=== PATIENT | female | born 1960 | race Caucasian/White ===

== ENCOUNTER 2016-11-14 09:20 | Emergency (ER) | payer OTHER ==
[~2016-11-14] VITALS: Ht 166.4 cm; Wt 104.5 kg
[2016-11-14] MEDS ORDERED: CETI10TA (09:31)
[2016-11-14] MEDS ORDERED: FEROCAP3 (09:31)
[2016-11-14] MEDS ORDERED: MONT10TA2 (09:31)
[2016-11-14] MEDS ORDERED: MORPHINE 10 MG/ML 1ML VIAL IM ONE (09:45)
--- NOTE | 2016-11-14 10:56 | REP ---
RIGHT SHOULDER SERIES: Three views of the right shoulder are performed. There is no acute fracture or dislocation. There is moderate narrowing and mild spurring at the acromioclavicular joint. Signed by Corby Castro MD 11/14/2016 07:50 P
--- NOTE | 2016-11-14 10:58 | REP ---
RIGHT RIB SERIES: Four views of the right ribs are performed. No fracture or bone lesion is seen. An accompanying view of the chest demonstrates no acute infiltrate, pleural effusion or pneumothorax. Heart is normal in size and mediastinal silhouette is unremarkable. IMPRESSION: No evidence of right rib fracture. Signed by Corby Castro MD 11/14/2016 07:50 P
[2016-11-14] MEDS ORDERED: IBUP-1022 PO (11:02)
[2016-11-14 11:23] VITALS: BP 117/68
== END 2016-11-14 11:26 | disposition home or self-care (01) ==
LOC: M ED 09:20
DX: S40.011A Contusion of right shoulder, initial encounter (principal); S20.211A Contusion of right front wall of thorax, initial encounter; W01.198A Fall on same level from slipping, tripping and stumbling with subsequent striking against other object, initial encounter; Y92.019 Unspecified place in single-family (private) house as the place of occurrence of the external cause; Y93.89 Activity, other specified; Y99.8 Other external cause status

== ENCOUNTER → 2017-04-16 | Outpatient (REF) | payer OTHER | LOC: M SFHCLERA 16:47 | DX: J02.9 Acute pharyngitis, unspecified (principal) ==

== ENCOUNTER → 2018-04-13 | Outpatient (CLI) | payer OTHER ==
[~2018-04-13] MED LIST: CETI10TA; FEROCAP3; IBUP-1022 PO; MONT10TA2
[2018-04-13 19:38] LABS: THYROID STIMULATING HORMONE 2.52 uIU/ML (0.358-3.740); THYROXINE (T4) 10.7 UG/DL (4.5-12.0)
[2018-04-13 19:40] LABS: TOTAL T3 116.3 NG/DL (60.0-181.0)
== END ==
LOC: M WUC 17:21
DX: Z13.29 Encounter for screening for other suspected endocrine disorder (principal)

== ENCOUNTER → 2019-06-08 | Outpatient (CLI) | payer OTHER ==
[~2019-06-08] MED LIST changes: -MONT10TA2; +MONT10TA4
[2019-06-08 15:37] LABS: HEMATOCRIT 41.3 % (36.0-47.0); HEMOGLOBIN 13.4 g/dl (12.0-15.5); MEAN CORPUSCULAR HEMOGLOBIN 30.5 pg (27.0-33.0); MEAN CORPUSCULAR HGB CONC 32.4 g/dl (32.0-36.5); MEAN CORPUSCULAR VOLUME 93.9 fl (80.0-96.0); PLATELET COUNT, AUTOMATED 183 10^3/uL (150-450); WHITE BLOOD COUNT 4.2 10^3/uL (4.0-10.0)
[2019-06-08 15:49] LABS: ALBUMIN 3.5 GM/DL (3.2-5.2); ALT/SGPT 30 U/L (12-78); BILIRUBIN,TOTAL 0.4 MG/DL (0.2-1.0); BLOOD UREA NITROGEN 12 MG/DL (7-18); CALCIUM LEVEL 8.8 MG/DL (8.5-10.1); CARBON DIOXIDE LEVEL 30 MEQ/L (21-32); CHLORIDE LEVEL 106 MEQ/L (98-107); CREATININE FOR GFR 0.58 MG/DL (0.55-1.30); FERRITIN 31 NG/ML (8-252); GLOMERULAR FILTRATION RATE > 60.0 (>51); GLUCOSE, FASTING 78 MG/DL (70-100); IRON (FE) 98 UG/DL (50-170); POTASSIUM SERUM 4.3 MEQ/L (3.5-5.1); SODIUM LEVEL 140 MEQ/L (136-145); TOTAL PROTEIN 7.1 GM/DL (6.4-8.2)
[2019-06-08 15:51] LABS: TOTAL 25(OH) VITAMIN D 35.6 NG/ML (30.0-100.0)
[2019-06-08 15:52] LABS: FOLATE 15.7 NG/ML (>5.4); PTH INTACT 74.2 PG/ML (18.5-88.0); VITAMIN B12 LEVEL 543 PG/ML (247-911)
== END ==
LOC: M WUC 14:33
PROVIDERS: ATTEND Physician Assistant Surgical
DX: K90.9 Intestinal malabsorption, unspecified (principal)

== ENCOUNTER 2019-10-12 09:31 | Emergency (ER) | payer OTHER ==
[~2019-10-12] VITALS: Ht 165.1 cm; Wt 101.2 kg
[~2019-10-12 09:31] MED LIST changes: -CETI10TA; +CETI10TA PO
[2019-10-12] MEDS ORDERED: IBUP80TA PO (09:47)
[2019-10-12] MEDS ORDERED: VITA50TA47 PO (09:47)
[2019-10-12] MEDS ORDERED: CALC1TAB63 PO (09:47)
[2019-10-12] MEDS ORDERED: ACET-683 PO (09:47)
[2019-10-12] MEDS ORDERED: IRON65TA2 PO (09:47)
[2019-10-12] MEDS ORDERED: CALC250T PO (09:47)
[2019-10-12] MEDS ORDERED: AMOX875T2 PO (09:47)
[2019-10-12] MEDS ORDERED: B-12100021 PO (09:47)
[2019-10-12] MEDS ORDERED: MULTCAP PO (09:47)
[2019-10-12] MEDS ORDERED: NS 1,000 ML IV ONE (10:15)
[2019-10-12] MEDS ORDERED: KETOROLAC 30 MG/ML 1ML VIAL IV ONE ×2 (10:15→16:30)
[2019-10-12 10:49] LABS: BASO % 0.5 % (0.0-1.0); EOS # 0.2 10^3/uL (0.0-0.5); EOS % 3.8 % (0.0-3.0); HEMATOCRIT 40.5 % (36.0-47.0); HEMOGLOBIN 13.6 g/dl (12.0-15.5); LYMPH # 1.2 10^3/uL (1.5-5.0); LYMPH % 27.1 % (24.0-44.0); MEAN CORPUSCULAR HEMOGLOBIN 31.6 pg (27.0-33.0); MEAN CORPUSCULAR HGB CONC 33.6 g/dl (32.0-36.5); MEAN CORPUSCULAR VOLUME 94.2 fl (80.0-96.0); MONO # 0.3 10^3/uL (0.0-0.8); MONO % 7.2 % (0.0-5.0); NEUTROPHILS # 2.7 10^3/uL (1.5-8.5); NEUTROPHILS % 61.2 % (36.0-66.0); PLATELET COUNT, AUTOMATED 198 10^3/uL (150-450); WHITE BLOOD COUNT 4.4 10^3/uL (4.0-10.0)
[2019-10-12] MEDS ORDERED: ISOVUE-370 76% 100ML VIAL As Ordered ONE (11:27)
[2019-10-12 12:03] LABS: ERYTHROCYTE SEDIMENTATION RATE 64 mm/hr (0-30)
--- NOTE | 2019-10-12 12:19 | REPVR ---
PROCEDURE INFORMATION: Exam: CT Neck With Contrast Exam date and time: 10/12/2019 11:43 AM Age: 58 years old Clinical indication: Throat pain; Additional info: Large tender area to left neck TECHNIQUE: Imaging protocol: Computed tomography images of the neck with intravenous contrast. Radiation optimization: All CT scans at this facility use at least one of these dose optimization techniques: automated exposure control; mA and/or kV adjustment per patient size (includes targeted exams where dose is matched to clinical indication); or iterative reconstruction. Contrast material: ISO 370; Contrast volume: 75 ml; Contrast route: INTRAVENOUS (IV); COMPARISON: No relevant prior studies available. FINDINGS: Sinuses: There is polypoid mucosal thickening along the floor of the right maxillary sinus. Nasopharynx: Unremarkable. Dental: Abnormal periapical lucencies involve the left proximal and middle mandibular molars, compatible with severe periodontal disease. Oropharynx: Unremarkable. No significant tonsillar enlargement. Hypopharynx: Unremarkable. Larynx: Unremarkable. Normal epiglottis. Retropharyngeal space: Unremarkable. Submandibular/Parotid glands: Normal. Glands are normal in size. Thyroid: The thyroid gland is diffusely enlarged and heterogeneous, with punctate hypodense and calcific nodules. Lymph nodes: Unremarkable. No lymphadenopathy. Trachea: Visualized trachea is unremarkable. Lungs: Unremarkable as visualized. Bones/joints: Unremarkable. No acute fracture. Soft tissues: There is left pre mandibular soft tissue swelling and induration. There is a small 3 x 4 mm fluid collection abutting the anterior mandible. IMPRESSION: Left pre mandibular cellulitis with tiny abscess. Findings are likely odontogenic and related to abscessed left 1st and 2nd mandibular molars. Correlation with dental evaluation is recommended. COMMENTS: Consistent with the [employer]'s Incidental Findings Committee white paper (J Am Monique Radiol 2015): In patients aged 35 years and older with an incidental thyroid nodule equal to or greater than 1.[address], MRI or extrathyroidal US, further evaluation with dedicated thyroid US is recommended for patients with normal life expectancy and without comorbidities. For smaller nodules without suspicious features, no further evaluation or follow up is recommended. Electronically signed by: Marie Kim On 10/12/2019 12:19:56 PM
[2019-10-12] MEDS ORDERED: dexameTHASONE 20MG/5ML VIAL (J1100 PER 1MG) IV ONE ×2 (13:00→19:14)
[2019-10-12] MEDS ORDERED: ONDANSETRON 4MG/2ML VIAL IV ONE ×2 (13:00→19:14)
[2019-10-12] MEDS ORDERED: AMPICILLIN SOD/SULBACTAM SOD 3 GM in D5W MINI-BAG PLUS 100 ML IV ONE ×2 (13:00→19:14)
[2019-10-12 18:48] VITALS: BP 130/76
[2019-10-13] MEDS ORDERED: MULT-90 PO (13:44)
[2019-10-13] MEDS ORDERED: THIA100T7 PO (13:44)
[2019-10-13] MEDS ORDERED: CALCTAB64 PO (13:44)
[2019-10-13] MEDS ORDERED: KETOROLAC 60MG 2ML VIAL As Ordered ONE (17:53)
== END 2019-10-12 20:27 | disposition home or self-care (01) ==
LOC: M ED 09:31
DX: K04.7 Periapical abscess without sinus (principal); L03.211 Cellulitis of face; Z98.84 Bariatric surgery status; Z88.2 Allergy status to sulfonamides; Z88.1 Allergy status to other antibiotic agents; Z88.5 Allergy status to narcotic agent; Z79.899 Other long term (current) drug therapy; Z79.2 Long term (current) use of antibiotics
CPT/HCPCS: 70491; 80047; 85025; 85652; 86140; 96361; 96365; 96366; 96375; 96376; 99283; J1100; J1885; J2405; Q9967

== ENCOUNTER 2019-10-13 11:36 | Inpatient (IN) | payer OTHER ==
[~2019-10-13] VITALS: Ht 165.1 cm; Wt 101.6 kg
[~2019-10-13 11:36] MED LIST changes: +ACET-683 PO; +AMOX875T2 PO; +B-12100021 PO; +CALC1TAB63 PO; +CALC250T PO; +IBUP80TA PO; +IRON65TA2 PO; +MULTCAP PO; +VITA50TA47 PO
[2019-10-13] MEDS ORDERED: NS 1,000 ML IV SCH (11:45)
[2019-10-13 12:39] LABS: BASO % 0.1 % (0.0-1.0); HEMATOCRIT 38.8 % (36.0-47.0); LYMPH # 0.9 10^3/uL (1.5-5.0); MEAN CORPUSCULAR HGB CONC 33.5 g/dl (32.0-36.5); MEAN CORPUSCULAR VOLUME 92.4 fl (80.0-96.0); MONO # 0.6 10^3/uL (0.0-0.8); MONO % 5.6 % (0.0-5.0); NEUTROPHILS # 8.3 10^3/uL (1.5-8.5); NEUTROPHILS % 84.8 % (36.0-66.0); PLATELET COUNT, AUTOMATED 206 10^3/uL (150-450); WHITE BLOOD COUNT 9.7 10^3/uL (4.0-10.0)
[2019-10-13] MEDS ORDERED: AMPICILLIN SOD/SULBACTAM SOD 3 GM in D5W MINI-BAG PLUS 100 ML IV ONE (13:00)
[2019-10-13] MEDS ORDERED: ONDANSETRON 4MG/2ML VIAL IV ONE (13:00)
[2019-10-13 13:04] LABS: BLOOD UREA NITROGEN 18 MG/DL (7-18); C REACTIVE PROTEIN QUANTITATIV 1.95 MG/DL (0.00-0.30); CALCIUM LEVEL 8.9 MG/DL (8.5-10.1); CARBON DIOXIDE LEVEL 26 MEQ/L (21-32); CHLORIDE LEVEL 111 MEQ/L (98-107); CREATININE FOR GFR 0.54 MG/DL (0.55-1.30); GLOMERULAR FILTRATION RATE > 60.0 (>51); GLUCOSE, FASTING 101 MG/DL (70-100); POTASSIUM SERUM 4.6 MEQ/L (3.5-5.1); SODIUM LEVEL 143 MEQ/L (136-145)
[2019-10-13 13:06] LABS: ERYTHROCYTE SEDIMENTATION RATE 56 mm/hr (0-30)
[2019-10-13] MEDS ORDERED: MULT-90 PO (13:44)
[2019-10-13] MEDS ORDERED: THIA100T7 PO (13:44)
[2019-10-13] MEDS ORDERED: CALCTAB64 PO (13:44)
[2019-10-13] MEDS ORDERED: LIDOCAINE 2% W/ EPINEPHRINE 1.7 ML DENTAL INJ As Ordered ONE (16:34)
[2019-10-13] MEDS ORDERED: CHLORHEXIDINE GLUCONATE 0.12 % 15ML UDC (PERIDEX ORAL RINSE) As Ordered ONE (16:34)
[2019-10-13] MEDS ORDERED: MEPIVACAINE HCL 3 % 1.7 ML DENTAL CARTRIDGE (CARBOCAINE) (J0670) As Ordered ONE (16:34)
[2019-10-13] MEDS ORDERED: propofoL 200 MG/20 ML VIAL As Ordered ONE (16:42)
[2019-10-13] MEDS ORDERED: ONDANSETRON 4MG/2ML VIAL As Ordered ONE (16:42)
[2019-10-13] MEDS ORDERED: dexameTHASONE 4 MG/ML 1ML VIAL (J1100 PER 1MG) As Ordered ONE (16:42)
[2019-10-13] MEDS ORDERED: ROCURONIUM BROMIDE 50 MG/5 ML VIAL As Ordered ONE (16:42)
[2019-10-13] MEDS ORDERED: MIDAZOLAM INJ 2MG/2ML VIAL (J2250 PER 1MG) As Ordered ONE (16:42)
[2019-10-13] MEDS ORDERED: LIDOCAINE 2% 100MG/5ML SDV (FOR ANES.) As Ordered ONE (16:42)
[2019-10-13] MEDS ORDERED: fentaNYL 100 MCG/2 ML INJECTION (J3010) As Ordered ONE ×3 (16:42→18:51)
--- NOTE | 2019-10-13 16:43 | HPEPDOC ---
General Date of Admission 10/13/19 Date of Service: Oct 13, 2019 Chief Complaint The patient is a 58-year-old female admitted with a reason for visit of Facial Swelling. Source: Patient History of Present Illness 58 year old female with h/o morbid obesity s/p gastric bypass, CHAR was on BIPAP before bypass surgery now resolved, asthma presented initially to ED with left jaw redness and swelling for 7 days on 10/12/19. She was found to have dental abscess was given unasyn 2 doses and sent to DR Lee oral surgeon for evaluation today. Dr Lee felt that it was not related to tooth and most probably ENT related so sent her back to ED today. She was evaluated byt ENT in ED and as per them it is related to dental abscess. She had a neck CT which showed Left pre mandibular cellulitis with tiny abscess. Findings are likely odontogenic and related to abscessed left 1st and 2nd mandibular molars. Dr Lee was reconsulted and recommended admission under the hospitalist service and plans for taking to OR today. Patient complained of hard swelling, and redness under the left jaw and up to the cheek and towards the Left ear. It was tender to touch sharp aching about 3/10. She denied any swallowing problem or any pain in her tooth or any problem while chewing. She was taking Augmentin for the past week till yesterday and then got unasyn x 2 in the ED yesterday. SHe reports after the IV antibiotics the swelling has improved a lot. Home Medications Scheduled Amoxicillin/Potassium Clav (Augmentin 875-125 Tablet) 1 Each Tablet, 875 MG PO BID Calcium Citrate/Vitamin D3 (Calcium Citrate-Vit D3 Tablet) 1 Each Tablet, 1 TAB PO BID, (Reported) Cetirizine HCl (Cetirizine HCl) 10 Mg Tab, 10 MG PO QHS, (Reported) Cyanocobalamin (Vitamin B-12) (B-12) 1,000 Mcg Tablet, 1,000 TAB PO DAILY, (Reported) Ferrous Sulfate (Iron) 325 Mg Tablet, 325 MG PO DAILY, (Reported) Multivitamin (Multivitamin) 1 Each Tablet, 1 EACH PO DAILY, (Reported) Thiamine HCl (Thiamine HCl) 100 Mg Tablet, 100 MG PO DAILY, (Reported) Scheduled PRN Acetaminophen (Acetaminophen) 500 Mg Tablet, 1,000 MG PO Q6H PRN for PAIN, (Reported) Ibuprofen (Ibuprofen) 800 Mg Tablet, 800 MG PO Q8H PRN for PAIN, (Reported) Allergies Coded Allergies: Sulfa (Sulfonamide Antibiotics) (Verified Adverse Reaction, Mild, "I throw up", 10/13/19) cephalexin (Verified Adverse Reaction, Mild, vomiting, 10/13/19) codeine (Verified Adverse Reaction, Mild, "I can't stay awake", 10/13/19) sulfamethoxazole (Verified Adverse Reaction, Mild, "bad dreams", 10/13/19) trimethoprim (Verified Adverse Reaction, Mild, "bad dreams", 10/13/19) Past Medical History Medical History ASTHMA GASTRIC BYPASS IN 2012, LOST 250# Obesity ALLERGIES CHAR BEFORE BARIATRIC SURGERY Surgical History APPENDECTOMY 2002 SINUS SURGERY CYSTS 2004 CARPAL TUNNEL RELEASE BILATERAL 2005 UTERINE CYST REMOVAL 2009 GASTRIC BYPASS 2012 Family History FATHER: ALIVE 82 YRS, HTN, COPD, NOT PRODUCING RBCS, COLON CANCER MOTHER: 61 YRS, LUNG CANCER, HTN 16 YEAR OLD SON PASSED, GUN ACCIDENT. A-FIB/CHADSVASC A-FIB History Current/History of A-Fib/PAF?: No Review of Systems Constitutional: Denies: Chills, Fever, Night Sweats Eyes: Denies: Pain, Vision change ENT: Denies: Head Aches, Ear Pain, Dysphagia Skin: Denies: Rash, Lesions, Breakdown Pulmonary: Denies: Dyspnea, Cough Cardiovascular: Denies: Chest Pain, Palpitations, Orthopnea, Paroxysmal Noc. D yspnea, Lt Headedness Gastrointestinal: Denies: Nausea, Vomiting, Abdominal Pain, Diarrhea Genitourinary: Denies: Dysuria, Frequency, Incontinence, Retention Musculoskeletal: Reports: Neck Pain Physical Examination General Exam: Positive: Alert, Cooperative, No Acute Distress Eye Exam: Positive: PERRLA, Conjunctiva & lids normal, EOMI; Negative: Sclera icteric ENT Exam: Positive: Atraumatic, Mucous membr. moist/pink, Pharynx Normal, Tongue Midline, Other ENT (left submandibular hard swelling) Neck Exam: Positive: Supple, Lymphadenopathy; Negative: JVD, thyromegaly Chest Exam: Positive: Clear to auscultation, Normal air movement Heart Exam: Positive: Rate Normal, Regular Rhythm, Normal S1, Normal S2; Negative: Murmurs, Rubs Abdomen Exam: Positive: Normal bowel sounds, Soft; Negative: Tenderness, Hepatospenomegaly Extremity Exam: Positive: Normal pulses; Negative: Clubbing, Cyanosis, Edema Skin Exam: Positive: Nl turgor and temperature; Negative: Breakdown, Lesion Neuro Exam: Positive: Normal Gait, Normal Speech, Cranial Nerves 3-12 NL, Reflexes 2+ Vital Signs Vital Signs Date Time Temp Pulse Resp B/P (MAP) Pulse Ox O2 Delivery O2 Flow Rate FiO2 10/13/19 12:09 10/13/19 11:36 98.7 58 20 98 Room Air Laboratory Data Labs 24H Laboratory Tests 2 10/13/19 12:19: Immature Granulocyte % (Auto) 0.5, Neutrophils (%) (Auto) 84.8H, Lymphocytes (%) (Auto) 9.0L, Monocytes (%) (Auto) 5.6H, Eosinophils (%) (Auto) 0.0, Basophils (%) (Auto) 0.1, Neutrophils # (Auto) 8.3, Lymphocytes # (Auto) 0.9L, Monocytes # (Auto) 0.6, Eosinophils # (Auto) 0.0, Basophils # (Auto) 0.0, Nucleated Red Blood Cells % (auto) 0.0, Erythrocyte Sedimentation Rate 56H, Anion Gap 6L, Glomerular Filtration Rate > 60.0, Calcium Level 8.9, C-Reactive Protein, Quantitative 1.95H, Coronavirus (COVID-19)(PCR) NEGATIVE CBC/BMP Laboratory Tests 10/13/19 12:19 Assessment/Plan 58 year old female with h/o morbid obesity s/p gastric bypass, CHAR was on BIPAP before bypass surgery now resolved, asthma presented initially to ED with left jaw redness and swelling for 7 days on 10/12/19. She was found to have dental abscess was given unasyn 2 doses and sent to DR Lee oral surgeon for evaluation today. Dr Lee felt that it was not related to tooth and most probably ENT related so sent her back to ED today. She was evaluated byt ENT in ED and as per them it is related to dental abscess. She had a neck CT which showed Left pre mandibular cellulitis with tiny abscess. Findings are likely odontogenic and related to abscessed left 1st and 2nd mandibular molars. Dr Lee was reconsulted and recommended admission under the hospitalist service and plans for taking to OR. Dental abscess with cellulitis of the neck and face. OR today with Dr Jesus west to continue. H/o morbid obesity/ CHAR/Asthma now resolved after gastric bypass surgery and loss of over 200 lbs. Plan / VTE VTE Prophylaxis Ordered?: Yes ANTONETTE BOWERS MD Oct 13, 2019 15:57
[2019-10-13] MEDS ORDERED: SUGAMMADEX SODIUM 500 MG/5 ML VIAL (BRIDION) As Ordered ONE (18:09)
[2019-10-13] MEDS: fentaNYL 100 MCG/2 ML INJECTION (J3010) IV PRN ×4 (18:55→19:10)
[2019-10-13] MEDS ORDERED: AMPICILLIN SOD/SULBACTAM SOD 3 GM in D5W MINI-BAG PLUS 100 ML IV SCH (19:00)
[2019-10-13] MEDS ORDERED: ACETAMINOPHEN 1000MG 100ML IV BTL (OFIRMEV) (J0131 PER 10MG) As Ordered ONE (19:09)
[2019-10-13] MEDS ORDERED: ONDANSETRON 4MG/2ML VIAL IV PRN ×2 (19:15→20:45)
[2019-10-13] MEDS ORDERED: METOCLOPRAMIDE INJ 10MG/2ML VIAL (J2765 PER 1) IV PRN (19:15)
[2019-10-13] MEDS ORDERED: oxyCODONE 5MG TAB PO PRN (19:15)
[2019-10-13] MEDS ORDERED: MEPERIDINE INJ 25 MG/ML VIAL (J2175) IV PRN (19:15)
[2019-10-13] MEDS ORDERED: LR 1,000 ML IV SCH ×2 (19:15→21:30)
[2019-10-13] MEDS ORDERED: oxyCODONE 5MG TAB As Ordered ONE (19:33)
[2019-10-13] MEDS ORDERED: DILUENT IV SCH (20:00)
[2019-10-13] MEDS ORDERED: ACETAMINOPHEN IV SCH (20:00)
[2019-10-13] MEDS ORDERED: ACETAMINOPHEN *IV* 1,000 MG in APPROPRIATE DILUENT 0 ML IV SCH (20:00)
[2019-10-13 20:25] VITALS: BP 133/63
[2019-10-13 20:55] VITALS: BP 100/54
[2019-10-13] MEDS: AMPICILLIN SOD/SULBACTAM SOD 3 GM in D5W MINI-BAG PLUS 100 ML IV SCH (20:56)
[2019-10-13] MEDS ORDERED: CETIRIZINE (ZyrTEC) 10 MG TAB PO SCH (21:00)
[2019-10-13 21:25] VITALS: BP 108/51
[2019-10-13 22:25] VITALS: BP 125/60
[2019-10-13 23:25] VITALS: BP 113/62
[2019-10-14] VITALS (7 sets, daily range): BP systolic 112–129; BP diastolic 56–64
[2019-10-14] MEDS: KETOROLAC 30 MG/ML 1ML VIAL IV PRN ×2 (01:45→07:49)
[2019-10-14] MEDS: AMPICILLIN SOD/SULBACTAM SOD 3 GM in D5W MINI-BAG PLUS 100 ML IV SCH ×4 (03:20→21:42)
[2019-10-14] MEDS: THIAMINE 100 MG TAB PO SCH (08:37)
[2019-10-14] MEDS: FERROUS SULFATE 325MG TAB PO SCH (08:37)
[2019-10-14] MEDS: CYANOCOBALAMIN 500 MCG TAB PO SCH (08:37)
[2019-10-14] MEDS: MULTIVITAMINS/MINERALS THERAP 1 TAB PO SCH (08:38)
[2019-10-14] MEDS: PANTOPRAZOLE 40MG VIAL (C9113 PER 1) IV SCH (08:39)
[2019-10-14] MEDS: ENOXAPARIN 40MG/0.4ML SYRINGE (J1650 PER 10MG) SC SCH (08:41)
[2019-10-14 08:45] LABS: HEMOGLOBIN 11.6 g/dl (12.0-15.5); MEAN CORPUSCULAR HGB CONC 34.1 g/dl (32.0-36.5); MEAN CORPUSCULAR VOLUME 93.7 fl (80.0-96.0); PLATELET COUNT, AUTOMATED 165 10^3/uL (150-450); RED BLOOD COUNT 3.63 10^6/uL (4.00-5.40); WHITE BLOOD COUNT 7.2 10^3/uL (4.0-10.0)
[2019-10-14 08:56] LABS: BLOOD UREA NITROGEN 17 MG/DL (7-18); CALCIUM LEVEL 8.6 MG/DL (8.5-10.1); CARBON DIOXIDE LEVEL 30 MEQ/L (21-32); CHLORIDE LEVEL 109 MEQ/L (98-107); GLOMERULAR FILTRATION RATE > 60.0 (>51); GLUCOSE, FASTING 88 MG/DL (70-100); POTASSIUM SERUM 4.3 MEQ/L (3.5-5.1); SODIUM LEVEL 144 MEQ/L (136-145)
--- NOTE | 2019-10-14 10:33 | IPNPDOC ---
Text Note Date of Service The patient was seen on 10/14/19. NOTE Subjective: Feels better today, had tooth removed yesterday and had incision and drainage of abscess. Drain was removed this am. No fever or chills. No SOB or cough Physical Exam: Vitals: as below General Exam: Positive: Alert, Cooperative, No Acute Distress Eye Exam: Positive: PERRLA, Conjunctiva & lids normal, EOMI; Negative: Sclera icteric ENT Exam: Positive: Atraumatic, Mucous membr. moist/pink, Pharynx Normal, Tongue Midline, dressing under left jaw with surrounding swelling. Neck Exam: Positive: Supple, Lymphadenopathy; Negative: JVD, thyromegaly Chest Exam: Positive: Clear to auscultation, Normal air movement Heart Exam: Positive: Rate Normal, Regular Rhythm, Normal S1, Normal S2; Negative: Murmurs, Rubs Abdomen Exam: Positive: Normal bowel sounds, Soft; Negative: Tenderness, Hepatosplenomegaly Extremity Exam: Positive: Normal pulses; Negative: Clubbing, Cyanosis, Edema Skin Exam: Positive: Nl turgor and temperature; Negative: Breakdown, Lesion Neuro Exam: Positive: Normal Gait, Normal Speech, Cranial Nerves 3-12 NL, Reflexes 2+ 58 year old female with h/o morbid obesity s/p gastric bypass, CHAR was on BIPAP before bypass surgery now resolved, asthma presented initially to ED with left jaw redness and swelling for 7 days on 10/12/19. She was found to have dental abscess was given unasyn 2 doses and sent to DR Lee oral surgeon for evaluation today. Dr Lee felt that it was not related to tooth and most probably ENT related so sent her back to ED today. She was evaluated byt ENT in ED and as per them it is related to dental abscess. She had a neck CT which showed Left pre mandibular cellulitis with tiny abscess. Findings are likely odontogenic and related to abscessed left 1st and 2nd mandibular molars. Dr Tiffany leon was reconsulted and recommended admission under the hospitalist service. Dental abscess with cellulitis of the neck and face. Had incision drainage on 10/12 with removal of [address] Jesus west to continue. cultures in progress. H/o morbid obesity/ CHAR/Asthma now resolved after gastric bypass surgery and loss of over 200 lbs. VS,[place], I+O VS, [place], I+O Laboratory Tests 10/13/19 12:19 10/14/19 07:35 10/14/19 07:45 Vital Signs Date Time Temp Pulse Resp B/P (MAP) Pulse Ox O2 Delivery O2 Flow Rate FiO2 10/14/19 04:00 97.6 55 18 112/56 (74) 98 Room Air I&O- Last 24 Hours up to 6 AM 10/14/19 06:00 Intake Total 3342 ml Output Total 251 ml Balance 3091 ml ANTONETTE BOWERS MD Oct 14, 2019 10:33
[2019-10-14] MEDS: IBUPROFEN 800 MG TAB PO PRN (15:42)
[2019-10-14] MEDS ORDERED: SLF 3 ML SYR IV PRN (18:30)
[2019-10-14] MEDS: CETIRIZINE (ZyrTEC) 10 MG TAB PO SCH (21:43)
[2019-10-14] MEDS: SLF 3 ML SYR IV SCH (21:43)
[2019-10-14] MEDS ORDERED: ACETAMINOPHEN TAB 650MG DOSE (2X325MG) PO ONE (21:45)
[2019-10-15] VITALS: BP 132/71
[2019-10-15] MEDS: AMPICILLIN SOD/SULBACTAM SOD 3 GM in D5W MINI-BAG PLUS 100 ML IV SCH ×4 (03:12→21:24)
[2019-10-15 04:00] VITALS: BP 138/65
[2019-10-15] MEDS: SLF 3 ML SYR IV SCH ×3 (05:58→21:24)
[2019-10-15 08:00] VITALS: BP 146/73
[2019-10-15] MEDS: THIAMINE 100 MG TAB PO SCH (08:42)
[2019-10-15] MEDS: CYANOCOBALAMIN 500 MCG TAB PO SCH (08:42)
[2019-10-15] MEDS: MULTIVITAMINS/MINERALS THERAP 1 TAB PO SCH (08:42)
[2019-10-15] MEDS: FERROUS SULFATE 325MG TAB PO SCH (08:42)
[2019-10-15] MEDS: PANTOPRAZOLE 40MG VIAL (C9113 PER 1) IV SCH (08:43)
[2019-10-15] MEDS: IBUPROFEN 800 MG TAB PO PRN ×2 (08:45→18:35)
[2019-10-15] MEDS: ENOXAPARIN 40MG/0.4ML SYRINGE (J1650 PER 10MG) SC SCH (08:54)
--- NOTE | 2019-10-15 11:41 | IPNPDOC ---
Text Note Date of Service The patient was seen on 10/15/19. NOTE Subjective: Feels better today, eating soft food, swelling beter but still not completely resolved. Physical Exam: Vitals: as below General Exam: Positive: Alert, Cooperative, No Acute Distress Eye Exam: Positive: PERRLA, Conjunctiva & lids normal, EOMI; Negative: Sclera icteric ENT Exam: Positive: Atraumatic, Mucous membr. moist/pink, Pharynx Normal, Tongue Midline, dressing under left jaw with surrounding swelling. Neck Exam: Positive: Supple, Lymphadenopathy; Negative: JVD, thyromegaly Chest Exam: Positive: Clear to auscultation, Normal air movement Heart Exam: Positive: Rate Normal, Regular Rhythm, Normal S1, Normal S2; Negative: Murmurs, Rubs Abdomen Exam: Positive: Normal bowel sounds, Soft; Negative: Tenderness, Hepatosplenomegaly Extremity Exam: Positive: Normal pulses; Negative: Clubbing, Cyanosis, Edema Skin Exam: Positive: Nl turgor and temperature; Negative: Breakdown, Lesion Neuro Exam: Positive: Normal Gait, Normal Speech, Cranial Nerves 3-12 NL, Reflexes 2+ Labs and Radiology: reviewed A/P 58 year old female with h/o morbid obesity s/p gastric bypass, CHAR was on BIPAP before bypass surgery now resolved, asthma presented initially to ED with left jaw redness and swelling for 7 days on 10/12/19. She was found to have dental abscess was given unasyn 2 doses and sent to DR Lee oral surgeon for evaluation today. Dr Lee felt that it was not related to tooth and most probably ENT related so sent her back to ED today. She was evaluated byt ENT in ED and as per them it is related to dental abscess. She had a neck CT which showed Left pre mandibular cellulitis with tiny abscess. Findings are likely o dontogenic and related to abscessed left 1st and 2nd mandibular molars. Dr Lee was reconsulted and recommended admission under the hospitalist service. Dental abscess with cellulitis of the neck and face. Had incision drainage on 10/12 with removal of [address] Lee unaumern to continue. H/o morbid obesity/ CHAR/Asthma now resolved after gastric bypass surgery and loss of over 200 lbs. VS,Fishbone, I+O VS, Fishbone, I+O Vital Signs Date Time Temp Pulse Resp B/P (MAP) Pulse Ox O2 Delivery O2 Flow Rate FiO2 10/15/19 08:00 98.5 72 18 146/73 (97) 97 Room Air I&O- Last 24 Hours up to 6 AM 10/15/19 06:00 Intake Total 1470 ml Output Total 800 ml Balance 670 ml ANTONETTE BOWERS MD Oct 15, 2019 11:41
[2019-10-15 12:00] VITALS: BP 141/65
[2019-10-15 16:00] VITALS: BP 128/64
[2019-10-15 20:00] VITALS: BP 132/62
[2019-10-15] MEDS: CETIRIZINE (ZyrTEC) 10 MG TAB PO SCH (21:24)
[2019-10-16] VITALS (7 sets, daily range): BP systolic 108–161; BP diastolic 54–86
[2019-10-16] MEDS: AMPICILLIN SOD/SULBACTAM SOD 3 GM in D5W MINI-BAG PLUS 100 ML IV SCH ×4 (02:31→21:02)
[2019-10-16] MEDS: SLF 3 ML SYR IV SCH ×3 (05:48→21:03)
[2019-10-16] MEDS: MULTIVITAMINS/MINERALS THERAP 1 TAB PO SCH (08:33)
[2019-10-16] MEDS: THIAMINE 100 MG TAB PO SCH (08:33)
[2019-10-16] MEDS: FERROUS SULFATE 325MG TAB PO SCH (08:33)
[2019-10-16] MEDS: ENOXAPARIN 40MG/0.4ML SYRINGE (J1650 PER 10MG) SC SCH (08:34)
[2019-10-16] MEDS: CYANOCOBALAMIN 500 MCG TAB PO SCH (08:34)
[2019-10-16] MEDS: PANTOPRAZOLE 40MG VIAL (C9113 PER 1) IV SCH (08:34)
--- NOTE | 2019-10-16 10:52 | IPNPDOC ---
Text Note Date of Service The patient was seen on 10/16/19. NOTE Subjective: No complaints today. Eating soft food, swelling better but still not completely resolved. Physical Exam: Vitals: as below General Exam: Positive: Alert, Cooperative, No Acute Distress Eye Exam: Positive: PERRLA, Conjunctiva & lids normal, EOMI; Negative: Sclera icteric ENT Exam: Positive: Atraumatic, Mucous membr. moist/pink, Pharynx Normal, Tongue Midline, dressing under left jaw with surrounding swelling. Neck Exam: Positive: Supple, Lymphadenopathy; Negative: JVD, thyromegaly Chest Exam: Positive: Clear to auscultation, Normal air movement Heart Exam: Positive: Rate Normal, Regular Rhythm, Normal S1, Normal S2; Negative: Murmurs, Rubs Abdomen Exam: Positive: Normal bowel sounds, Soft; Negative: Tenderness, Hepatosplenomegaly Extremity Exam: Positive: Normal pulses; Negative: Clubbing, Cyanosis, Edema Skin Exam: Positive: Nl turgor and temperature; Negative: Breakdown, Lesion Neuro Exam: Positive: Normal Gait, Normal Speech, Cranial Nerves 3-12 NL, Reflexes 2+ Labs and radilogy : reviewed 58 year old female with h/o morbid obesity s/p gastric bypass, CHAR was on BIPAP before bypass surgery now resolved, asthma presented initially to ED with left jaw redness and swelling for 7 days on 10/12/19. She was found to have dental abscess was given unasyn 2 doses and sent to DR Lee oral surgeon for evaluation today. Dr Lee felt that it was not related to tooth and most probably ENT related so sent her back to ED today. She was evaluated byt ENT in ED and as per them it is related to dental abscess. She had a neck CT which showed Left pre mandibular cellulitis with tiny abscess. Findings are likely odontogenic and related to abscessed left 1st and 2nd mandibular molars. Dr Lee was reconsulted and recommended admission under the hospitalist service. Dental abscess with cellulitis of the neck and face. Had incision drainage on 10/12 with removal of [address] Lee unamichael to continue. H/o morbid obesity/ CHAR/Asthma now resolved after gastric bypass surgery and lo ss of over 200 lbs. VS,Fishbone, I+O VS, Fishbone, I+O Vital Signs Date Time Temp Pulse Resp B/P (MAP) Pulse Ox O2 Delivery O2 Flow Rate FiO2 10/16/19 08:00 98.5 74 18 141/68 (92) 97 Room Air I&O- Last 24 Hours up to 6 AM 10/16/19 06:00 Intake Total 1160 ml Output Total 2200 ml Balance -1040 ml ANTONETTE BOWERS MD Oct 16, 2019 10:52
[2019-10-16] MEDS: CETIRIZINE (ZyrTEC) 10 MG TAB PO SCH (21:02)
[2019-10-17] MEDS: AMPICILLIN SOD/SULBACTAM SOD 3 GM in D5W MINI-BAG PLUS 100 ML IV SCH ×2 (03:06→08:33)
[2019-10-17 03:17] VITALS: BP_SYST 113; BP_SYST 163; BP_DIAS 56; BP_DIAS 88
[2019-10-17] MEDS: SLF 3 ML SYR IV SCH (06:00)
[2019-10-17 07:24] VITALS: O2SAT 98
[2019-10-17 08:00] VITALS: BP 145/66
[2019-10-17] MEDS: FERROUS SULFATE 325MG TAB PO SCH (08:31)
[2019-10-17] MEDS: CYANOCOBALAMIN 500 MCG TAB PO SCH (08:32)
[2019-10-17] MEDS: THIAMINE 100 MG TAB PO SCH (08:32)
[2019-10-17] MEDS: MULTIVITAMINS/MINERALS THERAP 1 TAB PO SCH (08:32)
[2019-10-17] MEDS: PANTOPRAZOLE 40MG VIAL (C9113 PER 1) IV SCH (08:33)
[2019-10-17] MEDS: ENOXAPARIN 40MG/0.4ML SYRINGE (J1650 PER 10MG) SC SCH (08:33)
[2019-10-17] MEDS ORDERED: AUGM875T28 PO (11:02)
--- NOTE | 2019-10-17 22:37 | DS.PDOC ---
Discharge Summary General Date of Admission Oct 13, 2019 at 15:47 Date of Discharge 10/17/19 Discharge Summary PROCEDURES PERFORMED DURING STAY: [None]. DISCHARGE DIAGNOSES: Dental abscess Neck abscess and cellulitis SECONDARY DIAGNOSIS: ASTHMA Morbid obesity s/p GASTRIC BYPASS IN 2011, LOST 250# Obesity Allergies CHAR BEFORE BARIATRIC SURGERY COMPLICATIONS/CHIEF COMPLAINT: Dental Abscess. HOSPITAL COURSE: 58 year old female with h/o morbid obesity s/p gastric bypass, CHAR was on BIPAP before bypass surgery now resolved, asthma presented initially to ED with left jaw redness and swelling for 7 days on 10/12/19. She was found to have dental abscess was given Unasyn 2 doses [address] sent to Dr Lee oral surgeon for evaluation today. Dr Lee felt that it was not related to tooth and most probably ENT related so sent her back to ED today. She was evaluated byt ENT in ED and as per them it is related to dental abscess. She had a neck CT which showed Left pre mandibular cellulitis with tiny abscess. Findings are likely odontogenic and related to abscessed left 1st and 2nd mandibular molars. Dr Lee was reconsulted and recommended admission under the hospitalist service. Dental abscess with cellulitis of the neck and face. Had incision drainage on 10/12 with removal of [address] Jesus west in hospital and discharged with Augmentin for 10 days. H/o morbid obesity/ CHAR/Asthma now resolved after gastric bypass surgery and loss of over 200 lbs. DISCHARGE MEDICATIONS: Please see below. ALLERGIES: Please see below. PHYSICAL EXAMINATION ON DISCHARGE: VITAL SIGNS: Please see below. General Exam: Positive: Alert, Cooperative, No Acute Distress Eye Exam: Positive: PERRLA, Conjunctiva & lids normal, EOMI; Negative: Sclera icteric ENT Exam: Positive: Atraumatic, Mucous membr. moist/pink, Pharynx Normal, Tongue Midline, dressing under left jaw with surrounding swelling. Neck Exam: Positive: Supple, Lymphadenopathy; Negative: JVD, thyromegaly Chest Exam: Positive: Clear to auscultation, Normal air movement Heart Exam: Positive: Rate Normal, Regular Rhythm, Normal S1, Normal S2; Negative: Murmurs, Rubs Abdomen Exam: Positive: Normal bowel sounds, Soft; Negative: Tenderness, Hepatosplenomegaly Extremity Exam: Positive: Normal pulses; Negative: Clubbing, Cyanosis, Edema Skin Exam: Positive: Nl turgor and temperature; Negative: Breakdown, Lesion Neuro Exam: Positive: Normal Gait, Normal Speech, Cranial Nerves 3-12 NL, Reflexes 2+ LABORATORY DATA: Please see below. ACTIVITY: [As tolerated]. DIET: Mechanical soft diet DISPOSITION: 01 Home, Self-Care. DISCHARGE INSTRUCTIONS: Follow up with Dr Lee in 10 days. ITEMS TO FOLLOWUP ON ON OUTPATIENT: Follow up final cultures. DISCHARGE CONDITION: [Stable]. TIME SPENT ON DISCHARGE: 25 minutes. Vital Signs/I&Os Vital Signs Date Time Temp Pulse Resp B/P (MAP) Pulse Ox O2 Delivery O2 Flow Rate FiO2 10/17/19 08:00 99.1 52 18 145/66 (92) 98 Room Air I&O- Last 24 Hours up to 6 AM 10/17/19 07:00 Intake Total 1160 ml Output Total 2500 ml Balance -1340 ml Microbiology Microbiology 10/13/19 Gram Stain - Final, Resulted 10/13/19 Wound Culture - Final, Resulted 10/13/19 Anaerobic Culture, Resulted Pending Discharge Medications Scheduled Amoxicillin/Potassium Clav (Augmentin 875-125 Tablet) 1 Each Tablet, 875 MG PO BID Calcium Citrate/Vitamin D3 (Calcium Citrate-Vit D3 Tablet) 1 Each Tablet, 1 TAB PO BID, (Reported) Cetirizine HCl (Cetirizine HCl) 10 Mg Tab, 10 MG PO QHS, (Reported) Cyanocobalamin (Vitamin B-12) (B-12) 1,000 Mcg Tablet, 1,000 TAB PO DAILY, (Reported) Ferrous Sulfate (Iron) 325 Mg Tablet, 325 MG PO DAILY, (Reported) Multivitamin (Multivitamin) 1 Each Tablet, 1 EACH PO DAILY, (Reported) Thiamine HCl (Thiamine HCl) 100 Mg Tablet, 100 MG PO DAILY, (Reported) Scheduled PRN Acetaminophen (Acetaminophen) 500 Mg Tablet, 1,000 MG PO Q6H PRN for PAIN, (Reported) Ibuprofen (Ibuprofen) 800 Mg Tablet, 800 MG PO Q8H PRN for PAIN, (Reported) Allergies Coded Allergies: Sulfa (Sulfonamide Antibiotics) (Verified Adverse Reaction, Mild, "I throw up", 10/13/19) cephalexin (Verified Adverse Reaction, Mild, vomiting, 10/13/19) codeine (Verified Adverse Reaction, Mild, "I can't stay awake", 10/13/19) sulfamethoxazole (Verified Adverse Reaction, Mild, "bad dreams", 10/13/19) trimethoprim (Verified Adverse Reaction, Mild, "bad dreams", 10/13/19) ANTONETTE BOWERS MD Oct 17, 2019 22:37
--- NOTE | 2019-10-28 14:33 | ER ---
DATE: 10/13/2019 REASON FOR CONSULTATION: The patient presents with a history of a swelling just beneath the mandible anteriorly on the left side. HISTORY OF PRESENT ILLNESS: The patient was seen in the emergency department, placed on oral antibiotic therapy with improvement. The patient was seen by an oral surgeon. The patient had a CT scan of the face which shows that there is premandibular swelling on the left side of the midline. This is consistent with a premaxillary abscess which measures just over 1 cm in diameter. PHYSICAL EXAMINATION: The patient is alert and oriented x3, no distress. There is swelling beneath the mandible which is tender and blanches. Inside the mouth there is no tenderness in the labial gingival sulcus. There is a bad premolar on that left side of the mandible. IMPRESSION: The patient likely has an abscess related to this carious tooth. The patient requires incision and drainage which could be done under local anesthesia. At the same time the dentist wants to remove some teeth. The oral surgeon can do this at the same time as he does the dental extraction. There is no trismus. ELLIS
--- NOTE | 2019-11-25 14:20 | RO ---
DATE OF OPERATION: 10/13/2019 PREOPERATIVE DIAGNOSIS: Left neck abscess, abscessed teeth #19, 20, partly erupted and carious tooth #17. POSTOPERATIVE DIAGNOSIS: Status post the above. PROCEDURE: Extraction of the aforementioned teeth #19 and 20 as well as incision and drainage of left neck abscess with placement of Anika drain. SURGEON: Derrick Lee DMD ANESTHESIA USED: General endotracheal anesthesia via oral JESUSITA. SPECIMENS: Gram stain, cultures and sensitivity, aerobes and anaerobes. Also teeth for gross only. INDICATIONS FOR SURGERY: Radha is a pleasant 58-year-old female who over the last week has had neck swelling and pain stemming from her teeth radiating into her neck with worsening neck swelling. She went to the emergency room yesterday. She was given intravenous (IV) antibiotics and was sent to me to be seen this morning for evaluation. Upon clinical exam, she had obvious left neck swelling that is large and indurated with erythematous skin. The induration and swelling is very tender to palpation. Her maximal intersagittal opening is about 50 mL. She does have poor oral hygiene and several carious teeth, including necrotic and grossly decayed #20 as well as gross carious tooth #19, barely erupted and dehisced wisdom tooth #17 that also had mesial caries. Intraorally there is no sign of swelling; however, there is tenderness to palpation in her left vestibule. Floor of the mouth is soft and nonelevated. Her white count from yesterday was 4.4, and she has been afebrile. Her CT scan does show a fluid collection in the left neck perimandibular area in the submandibular space. I went over the risks, benefits, and alternatives with the patient. Informed consent and history and physical were obtained. Elected to have the procedure done in an operating room setting before I sent the patient from my office down to the emergency room for a full admission by the hospitalist and a trip to the operating room for the aforementioned procedure. DESCRIPTION OF PROCEDURE: The patient was taken back to the operating room. She was laid supine on the operating room table. Ulnar nerve protectors were placed. Noninvasive cardiac monitors were applied. At that point the patient underwent general anesthesia and intubated with an oral JESUSITA. She was prepped and draped in the usual sterile fashion. A time-out procedure was performed to identify the patient, the procedure, and any of the precautions. A moist throat pack was inserted in the patient's oropharynx followed by the administration of 2% lidocaine with 1:100,000 epinephrine as local infiltration and blocks as well as skin infiltration in the left neck area along the proposed incision line, which was about an inch and a half below the inferior border of the mandible. At this point, once the local was given, a full-thickness flap was raised extending from #17, 18, 19, 20, and 21 with an anterior and posterior release. A small amount of buccal bone in a tough fashion was removed to sites #19 and 20. Teeth were then luxated and delivered. Sockets were curetted and irrigated. No sign of any purulence was noted. At this point, dissection was then carried out subperiosteal all the way down to the inferior border of the mandible, and once again no purulence was noted; however, an abundant amount of granulation tissue was evacuated from the sockets #19 and 20. Copious irrigation at this point. A 15-blade was then used on the left neck proposed incision line in the skin, which was carried through skin, platysma, and subcutaneous fat. Cautery was used to achieve hemostasis. Blunt hemostats were then used to puncture through the platysma and into the submandibular space and sublingual space. An abundant amount of purulent material was evacuated, and this is the material that was collected for specimen for aerobes, anaerobes, Gram stain, and sensitivity and cultures. Once all the purulent material was evacuated, the hemostats were then used to further bluntly dissect into the submandibular and sublingual spaces, and then my own index finger was used to bluntly dissect into those spaces with an abundant amount of necrotic tissue that was evacuated. Copious irrigation into those space, and one single 1/4-inch [place] drain was placed into the left submandibular space and secured at the skin with 3-0 silks. At this point, the neck was dressed with an ABD pad and gauze. Once the flap was closed with 3-0 chromic sutures, the oral cavity was irrigated and suctioned. The throat pack was removed, and the patient was then awakened from general anesthesia and taken back to the postanesthesia care unit (PACU). COMPLICATIONS: None. ESTIMATED BLOOD LOSS: 20 mL. DRAINS: There was one drain placed, 1/4-inch Anika, left submandibular space. MTDD
== END 2019-10-17 11:38 | disposition home or self-care (01) | DRG 98 ==
LOC: M ED 11:36 → M ED INP 15:47 → ENRESERV 19:54 → M PED 20:25
PROVIDERS: ADMIT Internal Medicine Nephrology; ATTEND Internal Medicine Nephrology
PROC: 0CDXXZ1 Extraction of Lower Tooth, Multiple, External Approach (ICD-10-PCS; 2019-10-13)
PROC: 0W9500Z Drainage of Lower Jaw with Drainage Device, Open Approach (ICD-10-PCS; principal; 2019-10-13 16:30)
DX: K04.7 Periapical abscess without sinus (principal); L03.221 Cellulitis of neck; L03.211 Cellulitis of face; J45.909 Unspecified asthma, uncomplicated; Z98.84 Bariatric surgery status; K02.9 Dental caries, unspecified; E66.9 Obesity, unspecified; Z88.2 Allergy status to sulfonamides; Z88.5 Allergy status to narcotic agent; Z88.1 Allergy status to other antibiotic agents; Z88.8 Allergy status to other drugs, medicaments and biological substances; Z79.899 Other long term (current) drug therapy; Z68.37 Body mass index [BMI] 37.0-37.9, adult

== ENCOUNTER → 2020-01-03 | Outpatient (REF) | payer OTHER ==
[~2020-01-03] MED LIST changes: +AUGM875T28 PO; +CALCTAB64 PO; +MULT-90 PO; +THIA100T7 PO
== END ==
LOC: M SFHCWAGY 17:12
PROVIDERS: ATTEND Nurse Practitioner Women's Health
DX: Z12.4 Encounter for screening for malignant neoplasm of cervix (principal); Z01.419 Encounter for gynecological examination (general) (routine) without abnormal findings

== ENCOUNTER → 2020-01-05 | Outpatient (CLI) | payer OTHER ==
--- NOTE | 2020-01-05 12:01 | REPMRS ---
Patient History The patient states she has not had a clinical breast exam in over a year. Family history of colorectal cancer at age 50 or over in maternal grandmother. 3D TOMOSYNTHESIS WAS PERFORMED. The Earnest Del Valle lifetime risk for breast cancer is 10.9%. Volpara breast density b. Digital Woman Screen Mammo: January 05, 2020 - Exam #: [id number] Bilateral CC and MLO view(s) were taken. Technologist: Mary Lee, Technologist Prior study comparison: June 20, 2014, digital woman screen mammo performed at [facility] [place]. 2013, bilateral digital mammo screening bilat, performed at [facility]. FINDINGS: There are scattered fibroglandular densities. There has been no change in the appearance of the mammogram from the prior studies. There is a mild amount of residual fibroglandular tissue which is fairly symmetric. There is no interval development of dominant mass, architectural distortion, or clustered microcalcification suggestive of malignancy. Assessment: BI-RADS/ACR category 1 mammogram. Negative Mammogram. Recommendation Routine screening mammogram in 1 year (for women over age 40). This mammogram was interpreted with the aid of an FDA-approved computer-aided dectection system. Electronically Signed By: Corby Castro MD 01/05/20 1200
== END ==
LOC: M WHC 10:56
PROVIDERS: ATTEND Nurse Practitioner Women's Health
DX: Z12.31 Encounter for screening mammogram for malignant neoplasm of breast (principal)

== ENCOUNTER → 2020-07-12 | Outpatient (CLI) | payer OTHER ==
[~2020-07-12] MED LIST changes: +MONT10TA10; -MONT10TA4
[2020-07-12 07:55] LABS: HEMATOCRIT 41.3 % (36.0-47.0); HEMOGLOBIN 13.6 g/dl (12.0-15.5); MEAN CORPUSCULAR HEMOGLOBIN 30.6 pg (27.0-33.0); MEAN CORPUSCULAR HGB CONC 32.9 g/dl (32.0-36.5); PLATELET COUNT, AUTOMATED 199 10^3/uL (150-450); RED BLOOD COUNT 4.44 10^6/uL (4.00-5.40); WHITE BLOOD COUNT 4.9 10^3/uL (4.0-10.0)
[2020-07-12 08:24] LABS: ALBUMIN 3.4 GM/DL (3.2-5.2); ALT/SGPT 23 U/L (12-78); BILIRUBIN,TOTAL 0.4 MG/DL (0.2-1.0); BLOOD UREA NITROGEN 14 MG/DL (7-18); CALCIUM LEVEL 8.9 MG/DL (8.5-10.1); CARBON DIOXIDE LEVEL 29 MEQ/L (21-32); CHLORIDE LEVEL 109 MEQ/L (98-107); CREATININE FOR GFR 0.64 MG/DL (0.55-1.30); FERRITIN 17 NG/ML (8-252); GLOMERULAR FILTRATION RATE > 60.0 (>51); GLUCOSE, FASTING 95 MG/DL (70-100); IRON (FE) 60 UG/DL (50-170); POTASSIUM SERUM 4.2 MEQ/L (3.5-5.1); SODIUM LEVEL 143 MEQ/L (136-145); TOTAL PROTEIN 6.8 GM/DL (6.4-8.2)
[2020-07-12 08:52] LABS: PTH INTACT 82.8 PG/ML (18.5-88.0); TOTAL 25(OH) VITAMIN D 35.7 NG/ML (30.0-100.0); VITAMIN B12 LEVEL 517 PG/ML (247-911)
[2020-07-12 09:05] LABS: FOLATE 14.2 NG/ML (>5.4)
== END ==
LOC: M LAB 06:50
PROVIDERS: ATTEND Physician Assistant Surgical
DX: K90.9 Intestinal malabsorption, unspecified (principal)

== ENCOUNTER → 2021-03-01 | Outpatient (REF) | payer OTHER ==
[~2021-03-01] MED LIST changes: -MONT10TA10; +MONT10TA97
== END ==
LOC: M SFHCWAGY 13:12
PROVIDERS: ATTEND Nurse Practitioner Women's Health
DX: Z12.4 Encounter for screening for malignant neoplasm of cervix (principal); B97.7 Papillomavirus as the cause of diseases classified elsewhere

== ENCOUNTER → 2021-03-01 | Outpatient (CLI) | payer OTHER | LOC: M WHC 09:00 | PROVIDERS: ATTEND Nurse Practitioner Women's Health | DX: Z12.31 Encounter for screening mammogram for malignant neoplasm of breast (principal) ==

== ENCOUNTER 2021-08-26 13:09 | Emergency (ER) | payer OTHER ==
[~2021-08-26] VITALS: Ht 167.6 cm; Wt 102.3 kg
[2021-08-26 14:05] LABS: BASO % 0.4 % (0.0-1.0); EOS # 0.1 10^3/uL (0.0-0.5); EOS % 1.7 % (0.0-3.0); HEMATOCRIT 38.7 % (36.0-47.0); HEMOGLOBIN 12.7 g/dl (12.0-15.5); LYMPH # 1.2 10^3/uL (1.5-5.0); LYMPH % 15.8 % (24.0-44.0); MEAN CORPUSCULAR HEMOGLOBIN 29.9 pg (27.0-33.0); MEAN CORPUSCULAR HGB CONC 32.8 g/dl (32.0-36.5); MEAN CORPUSCULAR VOLUME 91.1 fl (80.0-96.0); MONO # 0.5 10^3/uL (0.0-0.8); MONO % 5.9 % (2.0-8.0); NEUTROPHILS # 5.7 10^3/uL (1.5-8.5); NEUTROPHILS % 75.8 % (36.0-66.0); PLATELET COUNT, AUTOMATED 203 10^3/uL (150-450); RED BLOOD COUNT 4.25 10^6/uL (4.00-5.40); WHITE BLOOD COUNT 7.6 10^3/uL (4.0-10.0)
[2021-08-26] MEDS ORDERED: NS 1,000 ML IV ONE (14:15)
[2021-08-26] MEDS ORDERED: ONDANSETRON 4MG 2ML VIAL IV ONE (14:15)
[2021-08-26 14:35] LABS: ALBUMIN 3.5 GM/DL (3.2-5.2); ALT/SGPT 25 U/L (12-78); BILIRUBIN,DIRECT < 0.1 MG/DL (0.0-0.2); BILIRUBIN,TOTAL 0.4 MG/DL (0.2-1.0); LIPASE 199 U/L (73-393); TOTAL PROTEIN 6.9 GM/DL (6.4-8.2)
[2021-08-26] MEDS ORDERED: KETOROLAC 30 MG/ML 1ML VIAL IV ONE (14:45)
[2021-08-26] MEDS ORDERED: MORPHINE 4 MG/ML 1ML VIAL/SYRINGE IV ONE (16:45)
[2021-08-26] MEDS ORDERED: traMADol 50 MG TAB (HOME DOSE PACK) PO ONE (17:45)
[2021-08-26] MEDS ORDERED: KETO10TAB PO (17:48)
[2021-08-26] MEDS ORDERED: FLOM0.4C39 PO (17:48)
[2021-08-26 18:12] VITALS: BP 145/67
[2021-08-26] MEDS ORDERED: ONDA4TAB6 PO (18:12)
== END 2021-08-26 18:15 | disposition home or self-care (01) ==
LOC: M ED 13:09
DX: N13.2 Hydronephrosis with renal and ureteral calculous obstruction (principal); I10 Essential (primary) hypertension; Z90.89 Acquired absence of other organs; Z88.2 Allergy status to sulfonamides; Z88.8 Allergy status to other drugs, medicaments and biological substances; Z88.6 Allergy status to analgesic agent; Z79.899 Other long term (current) drug therapy
CPT/HCPCS: 74176; 80047; 80076; 81001; 83690; 85025; 96361; 96374; 96375; 99284; J1885; J2270; J2405

== ENCOUNTER → 2022-05-19 | Outpatient (CLI) | payer OTHER ==
[~2022-05-19] MED LIST changes: +FLOM0.4C39 PO; +KETO10TAB PO; +ONDA4TAB6 PO
[2022-05-19 09:06] LABS: BASO % 0.7 % (0.0-1.0); EOS # 0.3 10^3/uL (0.0-0.5); EOS % 6.7 % (0.0-3.0); HEMATOCRIT 36.9 % (36.0-47.0); HEMOGLOBIN 11.8 g/dl (12.0-15.5); LYMPH # 1.5 10^3/uL (1.5-5.0); LYMPH % 32.8 % (24.0-44.0); MEAN CORPUSCULAR HEMOGLOBIN 28.3 pg (27.0-33.0); MEAN CORPUSCULAR VOLUME 88.5 fl (80.0-96.0); MONO # 0.5 10^3/uL (0.0-0.8); MONO % 11.1 % (2.0-8.0); NEUTROPHILS # 2.2 10^3/uL (1.5-8.5); NEUTROPHILS % 48.5 % (36.0-66.0); PLATELET COUNT, AUTOMATED 208 10^3/uL (150-450); RED BLOOD COUNT 4.17 10^6/uL (4.00-5.40); WHITE BLOOD COUNT 4.6 10^3/uL (4.0-10.0)
[2022-05-19 09:14] LABS: HEMOGLOBIN A1c 5.3 % (4.0-6.0)
[2022-05-19 09:33] LABS: ALBUMIN 3.3 G/DL (3.2-5.2); ALKALINE PHOSPHATASE 79 U/L (46-116); ALT/SGPT 26 U/L (7.0-40); AST/SGOT 22 U/L (<34); BILIRUBIN,TOTAL 0.5 MG/DL (0.3-1.2); BLOOD UREA NITROGEN 11 MG/DL (9-23); CALCIUM LEVEL 8.6 MG/DL (8.5-10.1); CARBON DIOXIDE LEVEL 30 MMOL/L (20-31); CHLORIDE LEVEL 108 MMOL/L (98-107); CHOLESTEROL LEVEL 200 MG/DL (<200); CHOLESTEROL RISK RATIO 2.97 (<5); CREATININE FOR GFR 0.61 MG/DL (0.55-1.30); FERRITIN 6.3 NG/ML (7.3-270.7); GLOMERULAR FILTRATION RATE > 60.0 (>51); GLUCOSE, FASTING 85 MG/DL (60-100); HDL CHOLESTEROL 67.3 MG/DL (>40); LDL CHOLESTEROL 119.3 MG/DL (<100); NON-HDL-C 132.7 MG/DL; POTASSIUM SERUM 4.3 MMOL/L (3.5-5.1); SODIUM LEVEL 141 MMOL/L (136-145); TOTAL 25(OH) VITAMIN D 29.2 NG/ML (20.0-100.0); TOTAL PROTEIN 6.5 G/DL (5.7-8.2); TRIGLYCERIDES LEVEL 67 MG/DL (<150); VITAMIN B12 LEVEL 455 PG/ML (211-911)
== END ==
LOC: M LAB 08:18
PROVIDERS: ATTEND Nurse Practitioner Family
DX: Z98.84 Bariatric surgery status (principal); Z13.220 Encounter for screening for lipoid disorders; Z13.1 Encounter for screening for diabetes mellitus; E55.9 Vitamin D deficiency, unspecified

== ENCOUNTER → 2022-10-31 | Outpatient (CLI) | payer OTHER | LOC: M WHC 13:51 | PROVIDERS: ATTEND Nurse Practitioner Family | DX: Z12.31 Encounter for screening mammogram for malignant neoplasm of breast (principal) ==

== ENCOUNTER → 2022-11-03 | Outpatient (CLI) | payer OTHER ==
[2022-11-03 11:09] LABS: BASO % 0.4 % (0.0-1.0); EOS # 0.2 10^3/uL (0.0-0.5); EOS % 3.1 % (0.0-3.0); HEMATOCRIT 37.3 % (36.0-47.0); HEMOGLOBIN 11.7 g/dl (12.0-15.5); LYMPH # 1.9 10^3/uL (1.5-5.0); LYMPH % 40.5 % (24.0-44.0); MEAN CORPUSCULAR HEMOGLOBIN 27.5 pg (27.0-33.0); MEAN CORPUSCULAR HGB CONC 31.4 g/dl (32.0-36.5); MEAN CORPUSCULAR VOLUME 87.6 fl (80.0-96.0); MONO # 0.4 10^3/uL (0.0-0.8); MONO % 8.8 % (2.0-8.0); NEUTROPHILS # 2.2 10^3/uL (1.5-8.5); PLATELET COUNT, AUTOMATED 224 10^3/uL (150-450); RED BLOOD COUNT 4.26 10^6/uL (4.00-5.40); WHITE BLOOD COUNT 4.8 10^3/uL (4.0-10.0)
[2022-11-03 11:42] LABS: ALBUMIN 3.3 G/DL (3.2-5.2); ALKALINE PHOSPHATASE 81 U/L (46-116); ALT/SGPT 23 U/L (7.0-40); AST/SGOT 21 U/L (<34); BILIRUBIN,TOTAL 0.4 MG/DL (0.3-1.2); BLOOD UREA NITROGEN 9 MG/DL (9-23); CALCIUM LEVEL 8.6 MG/DL (8.5-10.1); CARBON DIOXIDE LEVEL 27 MMOL/L (20-31); CHLORIDE LEVEL 109 MMOL/L (98-107); CHOLESTEROL LEVEL 183 MG/DL (<200); CHOLESTEROL RISK RATIO 3.23 (<5); CREATININE FOR GFR 0.69 MG/DL (0.55-1.30); GLOMERULAR FILTRATION RATE > 60.0 (>51); GLUCOSE, FASTING 86 MG/DL (60-100); HDL CHOLESTEROL 56.6 MG/DL (>40); IRON (FE) 40 UG/DL (50-170); LDL CHOLESTEROL 112.4 MG/DL (<100); NON-HDL-C 126.4 MG/DL; PERCENT SATURATION 9.5 % (13.2-45.0); POTASSIUM SERUM 4.6 MMOL/L (3.5-5.1); SODIUM LEVEL 143 MMOL/L (136-145); TOTAL IRON BINDING CAPACITY 422 UG/DL (250-425); TOTAL PROTEIN 6.7 G/DL (5.7-8.2); TRIGLYCERIDES LEVEL 70 MG/DL (<150)
[2022-11-03 11:43] LABS: TOTAL 25(OH) VITAMIN D 32.2 NG/ML (20.0-100.0); VITAMIN B12 LEVEL 552 PG/ML (211-911)
== END ==
LOC: M LAB 10:37
PROVIDERS: ATTEND Nurse Practitioner Family
DX: Z98.84 Bariatric surgery status (principal)

== ENCOUNTER 2023-04-17 10:55 | Inpatient (IN) | payer OTHER, SELFPAY ==
[~2023-04-17] VITALS: Ht 167.6 cm; Wt 101.7 kg
[~2023-04-17 10:55] MED LIST changes: +FERR240T PO
[2023-04-17] MEDS: NS 1,000 ML IV ONE (11:38)
[2023-04-17] MEDS ORDERED: LIDOCAINE 2% 100MG/5ML SDV (FOR ANES.) As Ordered ONE (13:27)
[2023-04-17] MEDS ORDERED: propofoL 200 MG/20 ML VIAL As Ordered ONE (13:27)
[2023-04-17 17:30] VITALS: BP 130/70; TEMP 97.9; O2SAT 98
[2023-04-17 18:26] LABS: BASO % 0.4 % (0.0-1.0); EOS # 0.1 10^3/uL (0.0-0.5); EOS % 1.9 % (0.0-3.0); HEMOGLOBIN 15.6 g/dl (12.0-15.5); LYMPH # 1.7 10^3/uL (1.5-5.0); LYMPH % 32.5 % (24.0-44.0); MEAN CORPUSCULAR HEMOGLOBIN 31.3 pg (27.0-33.0); MEAN CORPUSCULAR HGB CONC 33.9 g/dl (32.0-36.5); MEAN CORPUSCULAR VOLUME 92.2 fl (80.0-96.0); MONO # 0.4 10^3/uL (0.0-0.8); MONO % 6.9 % (2.0-8.0); NEUTROPHILS % 58.3 % (36.0-66.0); RED BLOOD COUNT 4.99 10^6/uL (4.00-5.40); WHITE BLOOD COUNT 5.2 10^3/uL (4.0-10.0)
[2023-04-17] MEDS: GASTROGRAFIN SOLUTION 30ML PO SCH (18:32)
[2023-04-17 18:50] LABS: ALBUMIN 3.7 G/DL (3.2-5.2); ALKALINE PHOSPHATASE 81 U/L (46-116); ALT/SGPT 29 U/L (7.0-40); AST/SGOT 26 U/L (<34); BILIRUBIN,TOTAL 0.4 MG/DL (0.3-1.2); BLOOD UREA NITROGEN 8 MG/DL (9-23); CALCIUM LEVEL 9.1 MG/DL (8.3-10.6); CARBON DIOXIDE LEVEL 24 MMOL/L (20-31); CHLORIDE LEVEL 108 MMOL/L (98-107); CREATININE FOR GFR 0.58 MG/DL (0.55-1.30); GLOMERULAR FILTRATION RATE > 60.0 (>45); GLUCOSE, FASTING 89 MG/DL (74-106); POTASSIUM SERUM 4.6 MMOL/L (3.5-5.1); SODIUM LEVEL 140 MMOL/L (136-145); TOTAL PROTEIN 7.2 G/DL (5.7-8.2)
[2023-04-17 18:55] LABS: CARCINOEMBRYONIC ANTIGEN < 2.0 NG/ML (<2.5)
[2023-04-17 19:10] LABS: CA19-9 TUMOR MARKER,CARBOHYDRA 19.5 U/ML (<35.0)
[2023-04-17] MEDS ORDERED: ISOVUE-370 76% 100ML VIAL As Ordered ONE (19:50)
[2023-04-17 20:19] LABS: INR 1.11; PARTIAL THROMBOPLASTIN TIME 25.1 SECONDS (24.8-34.2)
[2023-04-17 21:05] VITALS: BP 131/61; TEMP 98.1; O2SAT 98
[2023-04-18 05:38] VITALS: BP 131/66; TEMP 98.2; O2SAT 97
[2023-04-18 06:18] LABS: MEAN CORPUSCULAR HEMOGLOBIN 31.3 pg (27.0-33.0); MEAN CORPUSCULAR HGB CONC 34.3 g/dl (32.0-36.5); MEAN CORPUSCULAR VOLUME 91.2 fl (80.0-96.0); PLATELET COUNT, AUTOMATED 172 10^3/uL (150-450); RED BLOOD COUNT 4.32 10^6/uL (4.00-5.40); WHITE BLOOD COUNT 5.9 10^3/uL (4.0-10.0)
[2023-04-18 06:37] LABS: HEMOGLOBIN 13.5 g/dl (12.0-15.5)
[2023-04-18 06:38] LABS: HEMATOCRIT 39.4 % (36.0-47.0)
[2023-04-18 06:44] LABS: BLOOD UREA NITROGEN 9 MG/DL (9-23); CALCIUM LEVEL 8.6 MG/DL (8.3-10.6); CARBON DIOXIDE LEVEL 27 MMOL/L (20-31); CHLORIDE LEVEL 109 MMOL/L (98-107); CREATININE FOR GFR 0.57 MG/DL (0.55-1.30); GLOMERULAR FILTRATION RATE > 60.0 (>45); GLUCOSE, FASTING 85 MG/DL (74-106); POTASSIUM SERUM 3.9 MMOL/L (3.5-5.1); SODIUM LEVEL 142 MMOL/L (136-145)
[2023-04-18 14:00] VITALS: BP 126/76; TEMP 98.1; O2SAT 99
[2023-04-18 20:01] VITALS: BP 130/79; TEMP 98.4; O2SAT 92
[2023-04-18] MEDS: diphenhydrAMINE 25MG CAP PO PRN (23:26)
[2023-04-19 05:28] VITALS: BP 121/62; TEMP 97.5; O2SAT 96
[2023-04-19 06:30] LABS: HEMATOCRIT 36.8 % (36.0-47.0); HEMOGLOBIN 12.2 g/dl (12.0-15.5); MEAN CORPUSCULAR HEMOGLOBIN 30.4 pg (27.0-33.0); MEAN CORPUSCULAR HGB CONC 33.2 g/dl (32.0-36.5); MEAN CORPUSCULAR VOLUME 91.8 fl (80.0-96.0); PLATELET COUNT, AUTOMATED 178 10^3/uL (150-450); RED BLOOD COUNT 4.01 10^6/uL (4.00-5.40); WHITE BLOOD COUNT 4.8 10^3/uL (4.0-10.0)
[2023-04-19 06:54] LABS: BLOOD UREA NITROGEN 10 MG/DL (9-23); CALCIUM LEVEL 8.4 MG/DL (8.3-10.6); CARBON DIOXIDE LEVEL 30 MMOL/L (20-31); CHLORIDE LEVEL 109 MMOL/L (98-107); CREATININE FOR GFR 0.66 MG/DL (0.55-1.30); GLOMERULAR FILTRATION RATE > 60.0 (>45); GLUCOSE, FASTING 95 MG/DL (74-106); SODIUM LEVEL 143 MMOL/L (136-145)
[2023-04-19 14:00] VITALS: BP 133/68; TEMP 98.2; O2SAT 98
[2023-04-19 19:53] VITALS: BP 131/69; TEMP 97; O2SAT 94
[2023-04-20 04:55] VITALS: BP 108/52; TEMP 97.7; O2SAT 97
[2023-04-20 06:05] LABS: HEMATOCRIT 36.6 % (36.0-47.0); HEMOGLOBIN 12.4 g/dl (12.0-15.5); MEAN CORPUSCULAR HEMOGLOBIN 30.7 pg (27.0-33.0); MEAN CORPUSCULAR HGB CONC 33.9 g/dl (32.0-36.5); MEAN CORPUSCULAR VOLUME 90.6 fl (80.0-96.0); PLATELET COUNT, AUTOMATED 178 10^3/uL (150-450); RED BLOOD COUNT 4.04 10^6/uL (4.00-5.40); WHITE BLOOD COUNT 4.4 10^3/uL (4.0-10.0)
[2023-04-20 06:28] LABS: BLOOD UREA NITROGEN 11 MG/DL (9-23); CALCIUM LEVEL 8.1 MG/DL (8.3-10.6); CARBON DIOXIDE LEVEL 30 MMOL/L (20-31); CHLORIDE LEVEL 109 MMOL/L (98-107); CREATININE FOR GFR 0.65 MG/DL (0.55-1.30); GLOMERULAR FILTRATION RATE > 60.0 (>45); GLUCOSE, FASTING 92 MG/DL (74-106); POTASSIUM SERUM 3.9 MMOL/L (3.5-5.1); SODIUM LEVEL 143 MMOL/L (136-145)
[2023-04-20 14:00] VITALS: BP 137/75; TEMP 97.9; O2SAT 99
[2023-04-20 20:19] VITALS: BP 127/74; TEMP 98.1; O2SAT 97
[2023-04-21 06:00] VITALS: BP 125/68; TEMP 98.8; O2SAT 95
[2023-04-21 06:22] LABS: HEMATOCRIT 38.8 % (36.0-47.0); HEMOGLOBIN 12.9 g/dl (12.0-15.5); MEAN CORPUSCULAR HEMOGLOBIN 30.9 pg (27.0-33.0); MEAN CORPUSCULAR HGB CONC 33.2 g/dl (32.0-36.5); MEAN CORPUSCULAR VOLUME 92.8 fl (80.0-96.0); PLATELET COUNT, AUTOMATED 174 10^3/uL (150-450); RED BLOOD COUNT 4.18 10^6/uL (4.00-5.40); WHITE BLOOD COUNT 4.5 10^3/uL (4.0-10.0)
[2023-04-21 06:44] LABS: BLOOD UREA NITROGEN 12 MG/DL (9-23); CALCIUM LEVEL 8.1 MG/DL (8.3-10.6); CARBON DIOXIDE LEVEL 31 MMOL/L (20-31); CHLORIDE LEVEL 109 MMOL/L (98-107); CREATININE FOR GFR 0.62 MG/DL (0.55-1.30); GLOMERULAR FILTRATION RATE > 60.0 (>45); GLUCOSE, FASTING 90 MG/DL (74-106); POTASSIUM SERUM 4.1 MMOL/L (3.5-5.1); SODIUM LEVEL 143 MMOL/L (136-145)
[2023-04-21 14:00] VITALS: BP 120/63; TEMP 98.1; O2SAT 95
== END 2023-04-21 16:00 | disposition home or self-care (01) | DRG 254 ==
LOC: M OPP 10:55 → M ED INP 16:33 → M MSPAV 17:19
PROVIDERS: ADMIT General Practice; ATTEND Family Medicine
PROC: 0W3P8ZZ Control Bleeding in Gastrointestinal Tract, Via Natural or Artificial Opening Endoscopic (ICD-10-PCS; 2023-04-17)
PROC: 0DBL8ZX Excision of Transverse Colon, Via Natural or Artificial Opening Endoscopic, Diagnostic (ICD-10-PCS; principal; 2023-04-17 12:15)
PROC: B246ZZZ Ultrasonography of Right and Left Heart (ICD-10-PCS; 2023-04-18)
DX: D12.3 Benign neoplasm of transverse colon (principal); K76.0 Fatty (change of) liver, not elsewhere classified; E66.9 Obesity, unspecified; J45.909 Unspecified asthma, uncomplicated; K64.8 Other hemorrhoids; R19.5 Other fecal abnormalities; M47.816 Spondylosis without myelopathy or radiculopathy, lumbar region; R01.1 Cardiac murmur, unspecified; K64.4 Residual hemorrhoidal skin tags; Z68.35 Body mass index [BMI] 35.0-35.9, adult; Z90.49 Acquired absence of other specified parts of digestive tract; Z98.84 Bariatric surgery status; Z88.2 Allergy status to sulfonamides; Z88.5 Allergy status to narcotic agent; Z88.8 Allergy status to other drugs, medicaments and biological substances; Z79.899 Other long term (current) drug therapy

== ENCOUNTER → 2023-05-23 | Outpatient (CLI) | payer OTHER ==
[~2023-05-23] MED LIST changes: +GASTROGRAFIN SOLUTION 30ML ONE; +ISOVUE-370 76% 100ML VIAL ONE
== END ==
LOC: M PLAIMG 11:45
PROVIDERS: ATTEND Internal Medicine Gastroenterology
DX: D37.4 Neoplasm of uncertain behavior of colon (principal)
CPT/HCPCS: 74177; Q9963; Q9967

== ENCOUNTER 2023-05-27 11:20 | Day surgery (SDC) | payer OTHER ==
[~2023-05-27] VITALS: Ht 167.6 cm; Wt 99.3 kg
[~2023-05-27 11:20] MED LIST changes: -GASTROGRAFIN SOLUTION 30ML ONE; -ISOVUE-370 76% 100ML VIAL ONE
[2023-05-27] MEDS: NS 1,000 ML IV ONE (11:56)
[2023-05-27] MEDS ORDERED: propofoL 200 MG/20 ML VIAL As Ordered ONE (11:59)
[2023-05-27 13:20] VITALS: TEMP 97.6
[2023-05-27 13:39] VITALS: BP 131/71; O2SAT 100
== END 2023-05-27 13:45 | disposition home or self-care (01) ==
LOC: M OPP 11:20
PROVIDERS: ATTEND Internal Medicine Gastroenterology
DX: Z86.010 Personal history of colon polyps (principal); K63.5 Polyp of colon; K64.8 Other hemorrhoids; K64.4 Residual hemorrhoidal skin tags; K57.30 Diverticulosis of large intestine without perforation or abscess without bleeding; Z98.890 Other specified postprocedural states; Z79.84 Long term (current) use of oral hypoglycemic drugs; Z79.899 Other long term (current) drug therapy; Z88.2 Allergy status to sulfonamides; Z88.5 Allergy status to narcotic agent; Z91.048 Other nonmedicinal substance allergy status

== ENCOUNTER → 2023-10-01 | Outpatient (CLI) | payer OTHER ==
[~2023-10-01] MED LIST changes: +ONDA-282 PO; -ONDA4TAB6 PO
[2023-10-01 08:07] LABS: BASO % 0.5 % (0.0-1.0); EOS # 0.2 10^3/uL (0.0-0.5); EOS % 4.2 % (0.0-3.0); HEMATOCRIT 40.9 % (36.0-47.0); HEMOGLOBIN 13.4 g/dl (12.0-15.5); LYMPH # 1.4 10^3/uL (1.5-5.0); LYMPH % 35.8 % (24.0-44.0); MEAN CORPUSCULAR HEMOGLOBIN 30.8 pg (27.0-33.0); MEAN CORPUSCULAR HGB CONC 32.8 g/dl (32.0-36.5); MONO # 0.3 10^3/uL (0.0-0.8); MONO % 7.4 % (2.0-8.0); NEUTROPHILS % 51.8 % (36.0-66.0); PLATELET COUNT, AUTOMATED 174 10^3/uL (150-450); RED BLOOD COUNT 4.35 10^6/uL (4.00-5.40); WHITE BLOOD COUNT 3.8 10^3/uL (4.0-10.0)
[2023-10-01 08:24] LABS: ALBUMIN 3.3 G/DL (3.2-5.2); ALKALINE PHOSPHATASE 71 U/L (46-116); ALT/SGPT 27 U/L (7.0-40); AST/SGOT 17 U/L (<34); BILIRUBIN,TOTAL 0.5 MG/DL (0.3-1.2); BLOOD UREA NITROGEN 14 MG/DL (9-23); CALCIUM LEVEL 8.8 MG/DL (8.3-10.6); CARBON DIOXIDE LEVEL 30 MMOL/L (20-31); CHLORIDE LEVEL 110 MMOL/L (98-107); CHOLESTEROL LEVEL 192 MG/DL (<200); CHOLESTEROL RISK RATIO 3.14 (<5); CREATININE FOR GFR 0.66 MG/DL (0.55-1.30); GLOMERULAR FILTRATION RATE > 60.0 (>45); GLUCOSE, FASTING 91 MG/DL (74-106); IRON (FE) 90 UG/DL (50-170); LDL CHOLESTEROL 118.8 MG/DL (<100); PERCENT SATURATION 22.8 % (13.2-45.0); SODIUM LEVEL 139 MMOL/L (136-145); TOTAL IRON BINDING CAPACITY 394 UG/DL (250-425); TOTAL PROTEIN 6.7 G/DL (5.7-8.2); TRIGLYCERIDES LEVEL 61 MG/DL (<150)
[2023-10-01 08:25] LABS: FREE T4 1.04 NG/DL (0.89-1.76); THYROID STIMULATING HORMONE 2.315 uIU/ML (0.55-4.78)
[2023-10-01 08:26] LABS: VITAMIN B12 LEVEL 494 PG/ML (211-911)
== END ==
LOC: M LAB 07:14
PROVIDERS: ATTEND Nurse Practitioner Family
DX: E55.9 Vitamin D deficiency, unspecified (principal); E78.2 Mixed hyperlipidemia; Z98.84 Bariatric surgery status

== ENCOUNTER → 2024-01-07 | Outpatient (CLI) | payer OTHER ==
[~2024-01-07] MED LIST changes: +GASTROGRAFIN SOLUTION 30ML ONE; +ISOVUE-370 76% 100ML VIAL ONE
== END ==
LOC: M PLAIMG 12:35
PROVIDERS: ATTEND Nurse Practitioner Family
DX: K63.9 Disease of intestine, unspecified (principal)

== ENCOUNTER 2024-06-08 08:13 | Day surgery (SDC) | payer OTHER ==
[~2024-06-08] VITALS: Ht 165.1 cm; Wt 100.9 kg
[~2024-06-08 08:13] MED LIST changes: -GASTROGRAFIN SOLUTION 30ML ONE; +GNP10TAB20 PO; -ISOVUE-370 76% 100ML VIAL ONE; +LEXA1TAB PO; +THIA50TA4 PO; +VITATAB73 PO
[2024-06-08] MEDS ORDERED: propofoL 200 MG/20 ML VIAL As Ordered ONE (09:47)
[2024-06-08 10:03] VITALS: TEMP 97.5
[2024-06-08 10:21] VITALS: BP 110/58; O2SAT 100
== END 2024-06-08 10:26 | disposition home or self-care (01) ==
LOC: M OPP 08:13
PROVIDERS: ATTEND Internal Medicine Gastroenterology
DX: K62.1 Rectal polyp (principal); K63.5 Polyp of colon; K64.8 Other hemorrhoids; Z98.890 Other specified postprocedural states; Z86.0101 Personal history of adenomatous and serrated colon polyps; Z88.1 Allergy status to other antibiotic agents; Z88.2 Allergy status to sulfonamides; Z88.5 Allergy status to narcotic agent; Z88.8 Allergy status to other drugs, medicaments and biological substances; Z91.048 Other nonmedicinal substance allergy status; Z79.899 Other long term (current) drug therapy; Z98.84 Bariatric surgery status